=== PATIENT | male | born 1955 | race Caucasian/White ===

== ENCOUNTER 2025-08-15 08:06 | Day surgery (SDC) | payer MEDICARE, OTHER ==
[2025-08-15] MEDS: Pilocarpine 4% Ophth Soln 15 ML Bot EYERT SCH (07:01)
[2025-08-15] MEDS: Lidocaine 1% PF 2 ML SDV INJECT SCH (07:01)
[2025-08-15] MEDS: Tetracaine HCl/PF 0.5% 4 ML Bottle EYEBOTH SCH (07:01)
[2025-08-15] MEDS: Polymyxin B/Trimethoprim 10 ML Bottle EYERT SCH (07:01)
[2025-08-15] MEDS: Cefuroxime 10 MG/ML SYRINGE EYERT SCH (07:01)
[2025-08-15] MEDS: Tropicamide 1% Ophth Soln 3 ML Bottle EYERT SCH (08:35)
== END 2025-08-15 10:34 ==
LOC: JD.SDS 08:06
PROVIDERS: ATTEND Ophthalmology
DX: H25.813 Combined forms of age-related cataract, bilateral (principal); H40.013 Open angle with borderline findings, low risk, bilateral; H02.831 Dermatochalasis of right upper eyelid; H02.834 Dermatochalasis of left upper eyelid; H57.813 Brow ptosis, bilateral; H18.413 Arcus senilis, bilateral
CPT/HCPCS: 66984; A9270; J0697; J3490